=== PATIENT | male | born 1965 | race Two or more races ===

== ENCOUNTER 2022-07-27 11:48 | Inpatient (IN) | payer MEDICAID, OTHER ==
[~2022-07-27] VITALS: Ht 172.7 cm; Wt 87.0 kg
[2022-07-27] VITALS (9 sets, daily range): BP systolic 114–158; BP diastolic 75–102
[2022-07-27] MEDS ORDERED: MORPHINE SULFATE 4 MG/ML SYR/VIAL IV ONE (12:00)
[2022-07-27] MEDS ORDERED: HEPARIN 1,000 UNITS/ml 1ML VIAL IV ONE (12:00)
[2022-07-27 12:06] LABS: Basophils # (auto) 0 10 ^3/uL (0-0.2); Basophils % (auto) 0.5 % (0.0-2.0); Eosinophils # (auto) 0.1 10 ^3/uL (0-0.8); Eosinophils % (auto) 1.5 % (0.0-7.0); Hematocrit 45.2 % (41.0-53.0); Hemoglobin 15.7 g/dL (13.5-17.5); Lymphocytes # (auto) 3.5 10 ^3/uL (0.4-5.4); Mean Corpuscular Hemoglobin 29.9 pg (28.0-32.0); Mean Corpuscular Hgb Conc. 34.7 g/dL (32.0-36.0); Mean Corpuscular Volume 86.1 fL (80.0-100.0); Monocytes # (auto) 0.5 10 ^3/uL (0-1.3); Monocytes % (auto) 5.8 % (0.0-12.0); Neutrophils # (auto) 4.4 10 ^3/uL (1.6-8.6); Neutrophils % (auto) 51.2 % (37.0-80.0); Nucleated Red Blood Cells % 0.1 %; Red Blood Cells 5.25 10^6/uL (4.5-5.90); Red Cell Distribution Width 13.3 % (11.8-14.3); White Blood Cell 8.6 10^3/uL (4.4-10.8)
[2022-07-27] MEDS ORDERED: NITROGLYCERIN 0.4 MG SL TAB SL PRN ×2 (12:15→13:15)
[2022-07-27] MEDS ORDERED: MORPHINE SULFATE INJ 2 MG/ml SYRG IV PRN ×2 (12:15→13:15)
[2022-07-27] MEDS ORDERED: fentaNYL CITRATE 100 MCG/2 ML VL ONE (12:29)
[2022-07-27] MEDS ORDERED: SODIUM CHL 0.9% 50 ML ONE (12:29)
[2022-07-27] MEDS ORDERED: ANGIOMAX 250 MG VIAL IV ONE (12:29)
[2022-07-27] MEDS ORDERED: MIDAZOLAM HCL 2MG/2ML 2ml VIAL (1mg/ml) ONE (12:29)
[2022-07-27 12:33] LABS: Potassium 3.8 mmol/L (3.5-5.1)
[2022-07-27] MEDS ORDERED: ATROPINE SULF 1 MG/10ml SYR ONE (12:34)
[2022-07-27] MEDS ORDERED: EPINEPHrine HCL 1 MG/10 ML SYRG ONE (12:34)
[2022-07-27 12:41] LABS: Albumin 3.9 g/dL (3.4-5.0); BUN/Creatinine Ratio 17.4; Bilirubin, Total 0.8 mg/dL (0.2-1.0); Calcium 8.5 mg/dL (8.5-10.1); Magnesium 2.5 mg/dL (1.6-2.6); Total Protein 6.8 g/dL (6.4-8.2)
[2022-07-27 12:48] LABS: INR 0.98 (0.9-1.15)
[2022-07-27] MEDS ORDERED: TICAGRELOR 90 MG TAB ONE (13:06)
[2022-07-27 13:23] LABS: Cholesterol 207 mg/dL (< 200); Triglycerides 241 mg/dL (< 150)
[2022-07-27 13:25] LABS: HDL Cholesterol 37 mg/dL (40-59); LDL Cholesterol 141 mg/dL (< 100)
[2022-07-27] MEDS: METOPROLOL TARTRATE 25 MG TAB PO SCH (21:48)
[2022-07-27] MEDS: SODIUM CHLOR 0.9% PF (SALINE LOCK) 10ML VIAL/SYR IV SCH (21:52)
[2022-07-27] MEDS ORDERED: ATORVASTATIN 20 MG TAB PO SCH (22:00)
[2022-07-28 05:00] VITALS: BP 120/78
[2022-07-28] MEDS: SODIUM CHLOR 0.9% PF (SALINE LOCK) 10ML VIAL/SYR IV SCH ×2 (05:22→10:29)
[2022-07-28 05:49] LABS: BUN/Creatinine Ratio 23.1; Calcium 8.8 mg/dL (8.5-10.1)
[2022-07-28] MEDS ORDERED: HEPARIN SODIUM (PORCINE) 5000 UNITS/ML 1ML VIAL SC STA (06:14)
[2022-07-28 09:00] VITALS: BP 131/84
[2022-07-28] MEDS: METOPROLOL TARTRATE 25 MG TAB PO SCH (09:10)
[2022-07-28] MEDS ORDERED: ASPirin 81 mg TAB PO SCH (10:00)
[2022-07-28] MEDS ORDERED: CLOPIDOGREL BISULFATE 75 MG TAB PO SCH (10:00)
[2022-07-28] MEDS ORDERED: CLOP75TA70 PO (11:21)
[2022-07-28] MEDS ORDERED: MET25T PO (11:21)
[2022-07-28] MEDS ORDERED: ASPI-325 PO (11:21)
[2022-07-28] MEDS ORDERED: ATOR20TA50 PO (11:21)
[2022-07-28 12:42] VITALS: BP 132/75
[2022-07-28 13:00] VITALS: BP 116/80
[2022-07-28] MEDS ORDERED: HEPARIN SODIUM (PORCINE) 5000 UNITS/ML 1ML VIAL SC SCH (14:00)
== END 2022-07-28 13:40 | disposition home or self-care (01) | DRG 174 ==
LOC: EDBD 11:48 → ER 11:48 → TELE 13:08 → CENTRAL 16:04
PROVIDERS: ADMIT Internal Medicine Cardiovascular Disease; ATTEND Internal Medicine Cardiovascular Disease
PROC: 027034Z Dilation of Coronary Artery, One Artery with Drug-eluting Intraluminal Device, Percutaneous Approach (ICD-10-PCS; principal; 2022-07-27)
PROC: 4A023N7 Measurement of Cardiac Sampling and Pressure, Left Heart, Percutaneous Approach (ICD-10-PCS; 2022-07-27)
PROC: B2111ZZ Fluoroscopy of Multiple Coronary Arteries using Low Osmolar Contrast (ICD-10-PCS; 2022-07-27)
DX: I21.09 ST elevation (STEMI) myocardial infarction involving other coronary artery of anterior wall (principal); E66.9 Obesity, unspecified; E78.5 Hyperlipidemia, unspecified; I10 Essential (primary) hypertension; I25.10 Atherosclerotic heart disease of native coronary artery without angina pectoris; Z20.822 Contact with and (suspected) exposure to COVID-19; Z79.02 Long term (current) use of antithrombotics/antiplatelets; Z68.29 Body mass index [BMI] 29.0-29.9, adult; Z79.82 Long term (current) use of aspirin; Z79.899 Other long term (current) drug therapy
CPT/HCPCS: 36415; 71045; 80048; 80053; 80061; 83036; 83735; 83880; 84443; 84484; 85025; 85610; 85730; 87426; 92928; 93005; 93306; 93458; 99152; 99153; C1769; C1874; G0378; J2250

== ENCOUNTER 2023-11-18 11:19 | Inpatient (IN) | payer MEDICAID ==
[~2023-11-18] VITALS: Ht 165.1 cm; Wt 85.6 kg
[~2023-11-18 11:19] MED LIST: ASPI-325 PO; ATOR20TA50 PO; CLOP75TA70 PO; MET25T PO
[2023-11-18 11:38] LABS: Basophils # (auto) 0.1 10 ^3/uL (0-0.2); Basophils % (auto) 0.6 % (0.0-2.0); Eosinophils # (auto) 0.1 10 ^3/uL (0-0.8); Hematocrit 49.9 % (41.0-53.0); Lymphocytes # (auto) 2.7 10 ^3/uL (0.4-5.4); Mean Corpuscular Hemoglobin 29.8 pg (28.0-32.0); Mean Corpuscular Volume 87.6 fL (80.0-100.0); Monocytes # (auto) 0.5 10 ^3/uL (0-1.3); Monocytes % (auto) 6.7 % (0.0-12.0); Neutrophils # (auto) 4.7 10 ^3/uL (1.6-8.6); Neutrophils % (auto) 57.7 % (37.0-80.0); Nucleated Red Blood Cells % 0.1 %; Red Cell Distribution Width 13.6 % (11.8-14.3); White Blood Cell 8.1 10^3/uL (4.4-10.8)
[2023-11-18 11:58] LABS: Alanine Aminotransferase 51 U/L (7-40); Albumin 4.6 g/dL (3.2-4.8); Alkaline Phosphatase 113 U/L (46-116); Anion Gap 2 (5-15); Aspartate Aminotransferase 30 U/L (13-40); BUN/Creatinine Ratio 8.5 (10.0-20.0); Bilirubin, Total 1.2 mg/dL (0.2-1.0); Blood Urea Nitrogen 9 mg/dL (9-23); Calcium 9.9 mg/dL (8.5-10.1); Carbon Dioxide 31 mmol/L (20-30); Chloride 107 mmol/L (98-107); Glucose 98 mg/dL (74-106); Potassium 4.2 mmol/L (3.5-5.1); Sodium 140 mmol/L (136-145); Total Protein 7.2 g/dL (5.7-8.2)
[2023-11-18 12:00] LABS: Urine Bacteria None Seen /hpf (None Seen)
[2023-11-18 12:21] LABS: Urine Blood Negative /uL (Negative); Urine Clarity Clear (Clear); Urine Color Yellow (Yellow); Urine Mucus FEW (None Seen); Urine Protein, UAD TRACE (Negative); Urine Urobilinogen Normal (Negative); Urine WBC 1 /hpf (0 - 3); Urine pH 6.5 (5.0-9.0)
[2023-11-18] MEDS ORDERED: ACETAMINOPHEN 325 MG TAB PO PRN (16:30)
[2023-11-18] MEDS ORDERED: MORPHINE SULFATE INJ 2 MG/ml SYRG IV PRN (16:30)
[2023-11-18] MEDS ORDERED: TEMAZEPAM 15 MG CAP PO PRN (16:30)
[2023-11-18] MEDS ORDERED: HYDROcodone-ACET 5/325MG TAB PO PRN (16:30)
[2023-11-18] MEDS ORDERED: NITROGLYCERIN 0.4 MG SL TAB SL PRN (16:30)
[2023-11-18 16:53] LABS: Basophils # (auto) 0 10 ^3/uL (0-0.2); Basophils % (auto) 0.4 % (0.0-2.0); Eosinophils # (auto) 0.1 10 ^3/uL (0-0.8); Eosinophils % (auto) 1.1 % (0.0-7.0); Hematocrit 49.1 % (41.0-53.0); Hemoglobin 17.1 g/dL (13.5-17.5); Lymphocytes # (auto) 2.8 10 ^3/uL (0.4-5.4); Lymphocytes % (auto) 32.8 % (10.0-50.0); Mean Corpuscular Hemoglobin 30.2 pg (28.0-32.0); Mean Corpuscular Hgb Conc. 34.8 g/dL (32.0-36.0); Mean Corpuscular Volume 86.9 fL (80.0-100.0); Monocytes # (auto) 0.5 10 ^3/uL (0-1.3); Monocytes % (auto) 5.4 % (0.0-12.0); Neutrophils # (auto) 5.1 10 ^3/uL (1.6-8.6); Neutrophils % (auto) 60.3 % (37.0-80.0); Nucleated Red Blood Cells % 0.3 %; Red Blood Cells 5.65 10^6/uL (4.5-5.90); Red Cell Distribution Width 13.6 % (11.8-14.3); White Blood Cell 8.4 10^3/uL (4.4-10.8)
[2023-11-18 17:10] LABS: INR 1.03 (0.9-1.15); Partial Thromboplastin Time 25.4 SEC (24.5-34.5); Prothrombin Time 10.9 sec (9.3-11.8)
[2023-11-18 17:47] VITALS: PULSE 71; RESP 16; O2SAT 99
[2023-11-18] MEDS: ASPirin 81 mg TAB PO ONE (18:03)
[2023-11-18] MEDS: HEPARIN SODIUM (PORCINE) 5000 UNITS/ML 1ML VIAL IV ONE (18:04)
[2023-11-18] MEDS: HEPARIN DRIP/D5W 100UNITS/ML 250 ML IV SCH (18:18)
[2023-11-18 19:30] VITALS: PULSE 65; RESP 12; O2SAT 12
[2023-11-18] MEDS: ATORVASTATIN 20 MG TAB PO SCH (22:40)
[2023-11-18] MEDS: METOPROLOL TARTRATE 25 MG TAB PO SCH (22:41)
[2023-11-19] VITALS (9 sets, daily range): BP systolic 106–152; BP diastolic 69–90; PULSE 60–78; RESP 15–19; TEMP 97.5–98.3; O2SAT 92–97
[2023-11-19 01:11] LABS: INR 1.09 (0.9-1.15); Prothrombin Time 11.5 sec (9.3-11.8)
[2023-11-19 01:13] LABS: Partial Thromboplastin Time 135.8 SEC (24.5-34.5)
[2023-11-19] MEDS: HEPARIN DRIP/D5W 100UNITS/ML 250 ML IV SCH ×2 (02:35→11:01)
[2023-11-19] MEDS ORDERED: ASPirin 81 mg TAB PO ONE (09:15)
[2023-11-19 10:03] LABS: Basophils # (auto) 0 10 ^3/uL (0-0.2); Basophils % (auto) 0.6 % (0.0-2.0); Eosinophils # (auto) 0.1 10 ^3/uL (0-0.8); Eosinophils % (auto) 1.3 % (0.0-7.0); Hematocrit 50.5 % (41.0-53.0); Hemoglobin 17.4 g/dL (13.5-17.5); Lymphocytes # (auto) 2.3 10 ^3/uL (0.4-5.4); Lymphocytes % (auto) 34.3 % (10.0-50.0); Mean Corpuscular Hemoglobin 29.8 pg (28.0-32.0); Mean Corpuscular Hgb Conc. 34.4 g/dL (32.0-36.0); Mean Corpuscular Volume 86.6 fL (80.0-100.0); Monocytes # (auto) 0.3 10 ^3/uL (0-1.3); Monocytes % (auto) 5.2 % (0.0-12.0); Neutrophils # (auto) 3.9 10 ^3/uL (1.6-8.6); Neutrophils % (auto) 58.6 % (37.0-80.0); Nucleated Red Blood Cells % 0.2 %; Red Blood Cells 5.83 10^6/uL (4.5-5.90); Red Cell Distribution Width 13.9 % (11.8-14.3); White Blood Cell 6.6 10^3/uL (4.4-10.8)
[2023-11-19 10:38] LABS: INR 1.03 (0.9-1.15); Partial Thromboplastin Time 38.8 SEC (24.5-34.5); Prothrombin Time 10.9 sec (9.3-11.8)
[2023-11-19] MEDS: CLOPIDOGREL BISULFATE 75 MG TAB PO SCH (10:59)
[2023-11-19] MEDS: ASPirin 81 mg TAB PO ONE (11:00)
[2023-11-19] MEDS ORDERED: ATOR40TA52 PO (11:19)
[2023-11-19 18:28] LABS: INR 1.07 (0.9-1.15); Partial Thromboplastin Time 46.2 SEC (24.5-34.5); Prothrombin Time 11.3 sec (9.3-11.8)
[2023-11-19] MEDS: ATORVASTATIN 20 MG TAB PO SCH (22:23)
[2023-11-20] VITALS (13 sets, daily range): BP systolic 117–141; BP diastolic 76–91; PULSE 60–80; RESP 12–19; TEMP 97.6–98.4; O2SAT 94–99
[2023-11-20] MEDS: HEPARIN DRIP/D5W 100UNITS/ML 250 ML IV SCH (01:00)
[2023-11-20 06:30] LABS: Basophils # (auto) 0 10 ^3/uL (0-0.2); Basophils % (auto) 0.4 % (0.0-2.0); Eosinophils # (auto) 0.1 10 ^3/uL (0-0.8); Eosinophils % (auto) 1.5 % (0.0-7.0); Hematocrit 47.7 % (41.0-53.0); Hemoglobin 16.5 g/dL (13.5-17.5); Lymphocytes # (auto) 2.5 10 ^3/uL (0.4-5.4); Lymphocytes % (auto) 36.5 % (10.0-50.0); Mean Corpuscular Hemoglobin 30.3 pg (28.0-32.0); Mean Corpuscular Hgb Conc. 34.6 g/dL (32.0-36.0); Mean Corpuscular Volume 87.5 fL (80.0-100.0); Monocytes # (auto) 0.4 10 ^3/uL (0-1.3); Monocytes % (auto) 5.9 % (0.0-12.0); Neutrophils # (auto) 3.8 10 ^3/uL (1.6-8.6); Neutrophils % (auto) 55.7 % (37.0-80.0); Nucleated Red Blood Cells % 0.1 %; Red Blood Cells 5.45 10^6/uL (4.5-5.90); Red Cell Distribution Width 13.4 % (11.8-14.3); White Blood Cell 6.7 10^3/uL (4.4-10.8)
[2023-11-20 06:39] LABS: Anion Gap 8 (5-15); Carbon Dioxide 31 mmol/L (20-30); Chloride 103 mmol/L (98-107); Potassium 4.2 mmol/L (3.5-5.1); Sodium 142 mmol/L (136-145)
[2023-11-20 06:41] LABS: Calcium 9.7 mg/dL (8.7-10.4)
[2023-11-20 06:46] LABS: BUN/Creatinine Ratio 14.3 (10.0-20.0); Blood Urea Nitrogen 16 mg/dL (9-23); Glucose 94 mg/dL (74-106)
[2023-11-20 08:00] LABS: Triglycerides 78 mg/dL (< 150)
[2023-11-20 08:01] LABS: LDL Cholesterol 85 mg/dL (< 100)
[2023-11-20 08:02] LABS: Cholesterol 152 mg/dL (< 200); HDL Cholesterol 49 mg/dL (40-59)
[2023-11-20 08:40] LABS: INR 1.03 (0.9-1.15); Partial Thromboplastin Time 32.4 SEC (24.5-34.5); Prothrombin Time 10.9 sec (9.3-11.8)
[2023-11-20] MEDS: LIDOCAINE 2%HCL (LOCAL ANESTH.) INJ 20ML MDV ONE (09:31)
[2023-11-20] MEDS: fentaNYL CITRATE 100 MCG/2 ML VL ONE (10:58)
[2023-11-20] MEDS: ANGIOMAX 250 MG VIAL IV ONE (10:58)
[2023-11-20] MEDS: VERAPAMIL 2.5MG/ML INJ 2ML VIAL IV ONE (10:58)
[2023-11-20] MEDS: MIDAZOLAM HCL 2MG/2ML 2ml VIAL (1mg/ml) ONE (10:58)
[2023-11-20] MEDS: SODIUM CHL 0.9% 50 ML ONE (10:58)
[2023-11-20] MEDS: HEPARIN SODIUM (PORCINE) 5000 UNITS/ML 1ML VIAL ONE (10:58)
[2023-11-20] MEDS: IODIXANOL 320MG/ML 100ML BTL IV ONE (11:25)
[2023-11-20] MEDS: ASPirin 81 mg TAB ONE (12:20)
[2023-11-20] MEDS: TICAGRELOR 90 MG TAB ONE (12:20)
[2023-11-20] MEDS: TICAGRELOR 90 MG TAB PO SCH (21:51)
[2023-11-20] MEDS ORDERED: TICAGRELOR 90 MG TAB PO SCH (22:00)
[2023-11-21] VITALS (7 sets, daily range): BP systolic 102–128; BP diastolic 71–79; PULSE 63–75; RESP 18–20; TEMP 36.9; O2SAT 95–97
[2023-11-21 07:01] LABS: Basophils # (auto) 0 10 ^3/uL (0-0.2); Basophils % (auto) 0.2 % (0.0-2.0); Eosinophils # (auto) 0.1 10 ^3/uL (0-0.8); Hematocrit 47.9 % (41.0-53.0); Hemoglobin 16.5 g/dL (13.5-17.5); Lymphocytes # (auto) 1.7 10 ^3/uL (0.4-5.4); Lymphocytes % (auto) 21.7 % (10.0-50.0); Mean Corpuscular Hemoglobin 30.2 pg (28.0-32.0); Mean Corpuscular Hgb Conc. 34.6 g/dL (32.0-36.0); Mean Corpuscular Volume 87.3 fL (80.0-100.0); Monocytes # (auto) 0.5 10 ^3/uL (0-1.3); Monocytes % (auto) 6.5 % (0.0-12.0); Neutrophils # (auto) 5.7 10 ^3/uL (1.6-8.6); Neutrophils % (auto) 70.6 % (37.0-80.0); Red Blood Cells 5.48 10^6/uL (4.5-5.90); Red Cell Distribution Width 13.6 % (11.8-14.3)
[2023-11-21 07:34] LABS: Alanine Aminotransferase 49 U/L (7-40); Albumin 4.2 g/dL (3.2-4.8); Alkaline Phosphatase 105 U/L (46-116); Anion Gap 2 (5-15); Aspartate Aminotransferase 28 U/L (13-40); Bilirubin, Total 1.4 mg/dL (0.2-1.0); Blood Urea Nitrogen 18 mg/dL (9-23); Calcium 9.9 mg/dL (8.5-10.1); Carbon Dioxide 31 mmol/L (20-30); Chloride 105 mmol/L (98-107); Glucose 99 mg/dL (74-106); Potassium 4.4 mmol/L (3.5-5.1); Sodium 138 mmol/L (136-145); Total Protein 6.5 g/dL (5.7-8.2)
[2023-11-21] MEDS: ENALAPRIL MALEATE 2.5 MG TAB PO SCH (08:40)
[2023-11-21] MEDS: ASPirin 81 mg TAB PO SCH (08:41)
[2023-11-21] MEDS ORDERED: ASPirin 81 mg TAB PO SCH (10:00)
[2023-11-21] MEDS ORDERED: TICA90TA PO (15:44)
[2023-11-21] MEDS ORDERED: ENAL1TAB42 PO (15:44)
[2023-11-21] MEDS ORDERED: ATOR20TA50 PO (15:44)
[2023-11-21] MEDS ORDERED: ASPI-325 PO (15:44)
[2023-11-21] MEDS ORDERED: METO25TA5 PO (15:45)
== END 2023-11-21 18:20 | disposition home or self-care (01) | DRG 174 ==
LOC: ER 11:19 → TELE 16:25 → TELE-CENTR 23:39
PROVIDERS: ADMIT Nurse Practitioner Family; ATTEND Nurse Practitioner Family
PROC: 027034Z Dilation of Coronary Artery, One Artery with Drug-eluting Intraluminal Device, Percutaneous Approach (ICD-10-PCS; principal; 2023-11-20)
PROC: 4A023N7 Measurement of Cardiac Sampling and Pressure, Left Heart, Percutaneous Approach (ICD-10-PCS; 2023-11-20)
PROC: B211YZZ Fluoroscopy of Multiple Coronary Arteries using Other Contrast (ICD-10-PCS; 2023-11-20)
PROC: B215YZZ Fluoroscopy of Left Heart using Other Contrast (ICD-10-PCS; 2023-11-20)
DX: I21.4 Non-ST elevation (NSTEMI) myocardial infarction (principal); E78.5 Hyperlipidemia, unspecified; I10 Essential (primary) hypertension; Z98.61 Coronary angioplasty status; Z79.02 Long term (current) use of antithrombotics/antiplatelets; Z79.82 Long term (current) use of aspirin; Z79.899 Other long term (current) drug therapy; Z87.891 Personal history of nicotine dependence
CPT/HCPCS: 36415; 71045; 80048; 80053; 80061; 81001; 83735; 83880; 84484; 85025; 85379; 85610; 85730; 92941; 93005; 93306; 93458; 96365; 96375; 99152; 99291; C1874; G0378; J2250; Q9967